=== PATIENT | male | born 1990 ===

== ENCOUNTER 2021-09-13 08:45 | Outpatient (CLI) | payer OTHER, SELFPAY ==
--- NOTE | ~2021-09-13 | MR_ITS ---
EXAMINATION: MR lower leg LT wo/w con DATE: 09/13/2021 09:46 INDICATION: Left calf pain and swelling. TECHNIQUE: Magnetic resonance imaging (MRI) of the left lower leg was performed without and with 15 m L MultiHance intravenous contrast. COMPARISON: None. FINDINGS: Bone alignment is normal. No fracture. There is a hematoma at the distal gastrocnemius myot endinous junction measuring 5.5 x 1.3 x 9.3 cm with adjacent edema and enhancement. The hematoma invo lves the medial head of gastrocnemius more than the lateral head. The distal Achilles tendon is yajaira l. IMPRESSION: 1. Grade 2 strain of distal left gastrocnemius muscle. Reviewed, dictated and finalized at location A.
[2021-09-13 09:15] LABS: Estimated Glomerular Filt Rate > 60
== END 2021-09-13 08:46 ==
LOC: MICIMG 08:47
PROVIDERS: PCP Nurse Practitioner Family; Visit Provider Nurse Practitioner Family
DX: M79.89 Other specified soft tissue disorders (principal)
CPT/HCPCS: 73720; A9577